=== PATIENT | female | born 1955 | race Caucasian/White ===

== ENCOUNTER 2021-05-30 17:37 | Emergency (ER) | payer BC ==
[2021-05-30 19:32] LABS: HEMOGLOBIN 15.7 gm/dl (12.3-15.3); RED BLOOD COUNT 5.29 M/UL (4.00-5.10); WHITE BLOOD COUNT 6.5 K/UL (4.5-11.0)
== END 2021-05-30 22:52 | disposition home or self-care (01) ==
LOC: ER1 17:37
DX: U07.1 COVID-19 (principal); Z91.040 Latex allergy status
CPT/HCPCS: 71045; 80053; 85025; 99284; U0002

== ENCOUNTER → 2022-03-01 | Outpatient (CLI) | payer MEDICARE | LOC: HEART 5 14:27 | DX: R06.00 Dyspnea, unspecified (principal) | CPT/HCPCS: 94010 ==

== ENCOUNTER → 2022-05-06 | Outpatient (CLI) | payer MEDICARE | LOC: ECHO 12:00 → NM 13:00 | DX: R94.31 Abnormal electrocardiogram [ECG] [EKG] (principal); I20.8 Other forms of angina pectoris; R06.00 Dyspnea, unspecified | CPT/HCPCS: ECHO; 78452; 93017; 93306; A9502 ==